=== PATIENT | female | born 1980 | race African-American/Black ===

== ENCOUNTER 2024-11-02 11:40 | Emergency (ER) | payer BC, OTHER ==
[~2024-11-02] VITALS: Ht 160 cm; Wt 74.8 kg
[2024-11-02 11:46] VITALS: O2SAT 100
[2024-11-02 11:52] VITALS: BP 198/119; PULSE 89; RESP 18; TEMP 36.6; O2SAT 100
[2024-11-02] MEDS ORDERED: IBUP-2741 MT (14:45)
== END 2024-11-02 15:37 | disposition home or self-care (01) ==
LOC: ER 11:40
DX: S93.601A Unspecified sprain of right foot, initial encounter (principal); I10 Essential (primary) hypertension; X50.1XXA Overexertion from prolonged static or awkward postures, initial encounter; Y93.89 Activity, other specified; Y92.89 Other specified places as the place of occurrence of the external cause; Y99.8 Other external cause status
CPT/HCPCS: 29515; 73630; 99283